=== PATIENT | male | born 1975 | race Caucasian/White ===

== ENCOUNTER 2016-09-18 21:38 | Emergency (ER) | payer BC ==
[~2016-09-18] VITALS: Ht 172.7 cm; Wt 71.7 kg
[2016-09-18 21:49] VITALS: TEMP 37.2; Ht 172.7 cm; Wt 71.7 kg
[2016-09-18] MEDS ORDERED: XYLOCAINE 1%/SOD BICARB 20 ML VIAL INFIL ONE (22:30)
[2016-09-18] MEDS ORDERED: TRAMADOL HCL 50 MG TAB PO STA (22:38)
[2016-09-18] MEDS ORDERED: ACETAMINOPHEN 500 MG TAB PO STA (22:38)
--- NOTE | 2016-09-18 22:48 | DIAGNOSTIC IMAGING REPORT ---
CT OF THE HEAD WITHOUT CONTRAST CLINICAL HISTORY: Head injury. COMPARISON STUDY: No previous studies for comparison. TECHNIQUE: Helical axial images of the head were obtained without IV contrast. Automated exposure control was utilized for the study. FINDINGS: No acute intracranial hemorrhage, midline shift or mass effect is present. Brain volume is normal. Ventricular system is normal. The basilar cisterns are patent. Arauz-white differentiation is maintained. Slight asymmetry in the lateral ventricles is likely congenital. There is no calvarial fracture. IMPRESSION: 1. No acute intracranial findings. 2. No calvarial fracture. Electronically signed by: Larry Edmonds M.D. 09/18/2016 10:47 PM Dictated Date/Time: 09/18/2016 10:45 PM
--- NOTE | 2016-09-18 22:51 | DIAGNOSTIC IMAGING REPORT ---
CT OF THE CERVICAL SPINE WITHOUT CONTRAST CLINICAL HISTORY: Neck pain COMPARISON STUDY: No previous studies for comparison. TECHNIQUE: Helical axial images of the cervical spine were obtained without IV contrast. Sagittal and coronal reconstructions were viewed. FINDINGS: Alignment of the cervical spine is anatomic. Vertebral body heights are maintained and there is no acute fracture. Mild multilevel degenerative changes are present. There is no prevertebral edema. No pneumothorax is shown within visualized portions of the lung apices. IMPRESSION: No acute cervical spine fracture or subluxation. Electronically signed by: Larry Edmonds M.D. 09/18/2016 10:49 PM Dictated Date/Time: 09/18/2016 10:47 PM
[2016-09-18] MEDS ORDERED: TRAMADOL HCL 50 MG HOME PACK PO ONE (23:00)
[2016-09-18] MEDS ORDERED: TRAM-10 PO (23:02)
[2016-09-18 23:10] VITALS: BP 129/78; PULSE 56; O2SAT 98
--- NOTE | 2016-09-18 23:32 | EMERGENCY ROOM VISIT NOTE ---
History First contact with patient: 22:09 Chief Complaint: FALL Stated Complaint: FELL ON ICE, LACERATION ON HEAD/LIP, STIFF NECK History of Present Illness The patient is a 41 year old male who presents to the Emergency Room with complaints of injuries after slipping on ice and falling face first onto the ground. The patient denies any loss of consciousness, but reports progressively worsening frontal headache, nausea and significant drowsiness. The patient denies any prior history of concussions. He rates his discomfort a 7 out of 10. Tetanus immunization is up-to-date. Review of Systems 10 system review was performed and was negative except for pertinent positives and negatives as indicated in history of present illness Past Medical/Surgical History Medical Problems: (1) Alcohol dependence (2) Bipolar II disorder Surgical Problems: (1) History of orthopedic surgery Family History FH: cancer FH: heart disease FH: hypertension Social History Smoking Status: Never Smoker Alcohol Use: none Marital Status: single Occupation Status: employed Current/Historical Medications Scheduled PRN Tramadol (Ultram), 1-2 TAB PO Q4H PRN for Pain Allergies Coded Allergies: No Known Allergies (Unverified , 09/18/16) Physical Exam Vital Signs Date Time Temp Pulse Resp B/P Pulse Ox O2 Delivery O2 Flow Rate FiO2 09/18/16 23:10 56 18 129/78 98 09/18/16 21:49 37.2 76 20 135/84 98 Room Air Physical Exam CONSTITUTIONAL: Healthy and well nourished. Alert and oriented X 3 with positive affect. GCS 15. The patient appears in moderate discomfort. HEENT: Examination shows an upper central forehead/scalp hematoma with vertical laceration measuring 2 cm. no active bleeding noted. The patient also has an abrasion over the left upper lip region. There is a small laceration at the base that is well approximated, and measures approximately 2 mm. A small 1 mm wet mucosal inner lip laceration is also noted. Pupils equal, round and reactive. No epistaxis, hemotympanum, raccoon's eyes or Layton sign. OROPHARYNX: In addition to the lip laceration as previously described. There is no additional dental trauma or intraoral lacerations. NECK: The patient has generalized tenderness to palpation of the neck. Cervical collar was applied. RESPIRATORY: Clear to auscultation bilaterally with no wheezing, crackles, rhonchi or stridor. CARDIOVASCULAR: Regular rate and rhythm with no murmurs, rubs or gallops. GASTROINTESTINAL: Bowel sounds present in all quadrants. MUSCULOSKELETAL: Full range of motion of all joints without discomfort. INTEGUMENTARY: No rash or other significant dermatologic conditions noted. NEUROLOGIC: No focal neurologic deficits noted. Normal finger to nose test. Negative pronator drift. No ataxia with ambulation. Medical Decision & Procedures ER Provider Diagnostic Interpretation: Noncontrast CT of the head and cervical spine does not show any cervical spine fractures, subluxations or intracranial bleed. Radiologist reports were also reviewed: CT OF THE CERVICAL SPINE WITHOUT CONTRAST CLINICAL HISTORY: Neck pain COMPARISON STUDY: No previous studies for comparison. TECHNIQUE: Helical axial images of the cervical spine were obtained without IV contrast. Sagittal and coronal reconstructions were viewed. FINDINGS: Alignment of the cervical spine is anatomic. Vertebral body heights are maintained and there is no acute fracture. Mild multilevel degenerative changes are present. There is no prevertebral edema. No pneumothorax is shown within visualized portions of the lung apices. IMPRESSION: No acute cervical spine fracture or subluxation. CT OF THE HEAD WITHOUT CONTRAST CLINICAL HISTORY: Head injury. COMPARISON STUDY: No previous studies for comparison. TECHNIQUE: Helical axial images of the head were obtained without IV contrast. Automated exposure control was utilized for the study. FINDINGS: No acute intracranial hemorrhage, midline shift or mass effect is present. Brain volume is normal. Ventricular system is normal. The basilar cisterns are patent. Arauz-white differentiation is maintained. Slight asymmetry in the lateral ventricles is likely congenital. There is no calvarial fracture. IMPRESSION: 1. No acute intracranial findings. 2. No calvarial fracture. Medications Administered Medications (Trade) Dose Ordered Sig/Anisa Route Start Time Stop Time Status Last Admin Dose Admin Acetaminophen (Tylenol Tab) 1,000 mg NOW STAT PO 09/18/16 22:38 09/18/16 22:39 DC 09/18/16 22:59 1,000 MG Tramadol HCl (Ultram Tab) 50 mg ONE STAT PO 09/18/16 22:38 09/18/16 22:39 DC 09/18/16 22:59 50 MG Tramadol HCl (Ultram Home Pack) 1 homepack UD ONCE PO 09/18/16 23:00 09/18/16 23:01 DC 09/18/16 23:00 1 HOMEPACK Procedure Forehead laceration repair was performed under local anesthesia after receiving verbal consent from the patient. Using buffered 1% lidocaine without epinephrine, good local anesthesia was administered. The wound was then peripherally cleansed with iodine, then approximated using 6-0 nylon simple interrupted sutures 3. Bacitracin was applied. ED Course Patient history and physical exam were performed. Nurse's notes were reviewed. The patient refused any initial analgesics or antiemetics. Noncontrast CT of the head and cervical spine were normal. Laceration repair of the frontal scalp was performed under local anesthesia. The patient was provided additional verbal and written wound care instructions. Ice to areas of swelling and discomfort. Ibuprofen and Tylenol in alternating fashion as needed for pain. The patient was provided a home pack and prescription for Ultram as needed for breakthrough pain. He did receive Ultram and Tylenol prior to discharge. Suture removal in 5-7 days, or seek reevaluation sooner for any signs of wound infection. The patient was also advised that he has a concussion. A concussion handout was provided. The patient was instructed to limit activities until all symptoms improve. I did encourage him to follow-up with his PCP or the [facility] concussion clinic if needed for additional concussion management. The patient was happy with plan of care, voice understanding of all discharge instructions, and rated his overall pain a 4 out of 10 at the time of discharge. Medical Decision Impression Primary Impression: Laceration of scalp Additional Impressions: Concussion Fall due to slipping on ice or snow Departure Information Prescriptions Tramadol (Ultram) 50 Mg Tab 1-2 TAB PO Q4H Y for Pain, #20 TAB For Initial Treatment Prov: Sagar Hollingsworth PA 09/18/16 Referrals Mario Dawson MD (PCP) Patient Instructions A Signature Page, [facility] Problem Qualifiers Primary Impression: Laceration of scalp Encounter type: initial encounter Qualified Codes: S01.01XA - Laceration without foreign body of scalp, initial encounter Additional Impressions: Concussion Encounter type: initial encounter Loss of consciousness presence/duration: without LOC Qualified Codes: S06.0X0A - Concussion without loss of consciousness, initial encounter Fall due to slipping on ice or snow Encounter type: initial encounter Qualified Codes: W00.9XXA - Unspecified fall due to ice and snow, initial encounter
== END 2016-09-18 23:11 | disposition home or self-care (01) ==
LOC: C.EDB 21:39 → C.EDD 23:11
DX: S01.01XA Laceration without foreign body of scalp, initial encounter (principal); S06.0X0A Concussion without loss of consciousness, initial encounter; W00.0XXA Fall on same level due to ice and snow, initial encounter; Y99.8 Other external cause status